=== PATIENT | female | born 1965 | race Caucasian/White ===

== ENCOUNTER → 2019-07-08 | Outpatient (CLI) | payer OTHER ==
--- NOTE | 2019-07-08 11:37 | RAD ---
KNEE RIGHT 2V 07/08/2019 12:00 AM INDICATION: Right knee pain with history of replacement 3 years ago COMPARISON: None available. TECHNIQUE: 2 views the right knee are provided. FINDINGS/ IMPRESSION: 1. Right total knee arthroplasty is identified. There is no significant lucency surrounding the hardware. There is 1.7 mm lucency along the posterior femoral component without resorption of the cortex. No evidence for hardware failure. 2. Moderate knee joint effusion. No acute fracture. Electronically signed by: Brandi Casiano MD (07/08/2019 11:34 AM) [id number]
--- NOTE | 2019-07-08 11:39 | RAD ---
LUMBAR SPINE 2-3V 07/08/2019 12:00 AM Indication: Low back pain with history of L2 compression fracture COMPARISON: None available TECHNIQUE: 2 views of the lumbar spine are provided. Findings: Alignment of the lumbar spine is normal. Vertebral body heights are maintained. No significant height loss at L2. No acute fracture is identified. Mild disc height loss at T9-T10 with endplate sclerosis. Is mild disc height loss at T11-T12 with minimal endplate sclerosis. Mild to moderate facet arthropathy. No significant osseous neuroforaminal stenosis or spinal canal stenosis. Nonobstructive bowel gas pattern. Visualized portions of the sacrum appear intact. Impression: No acute fracture or malalignment of the lumbar spine. Electronically signed by: Brandi Casiano MD (07/08/2019 11:36 AM) [id number]
== END | disposition home or self-care (01) ==
LOC: DXRAD 10:20
PROVIDERS: ATTEND Registered Nurse
DX: M25.461 Effusion, right knee (principal); M12.88 Other specific arthropathies, not elsewhere classified, other specified site; Z96.651 Presence of right artificial knee joint
CPT/HCPCS: 72100; 73560

== ENCOUNTER → 2021-12-06 | Outpatient (CLI) | payer OTHER ==
--- NOTE | 2021-12-06 13:51 | RAD ---
XR LUMBAR SPINE 2-3V History: Reason: BACK PAIN, DISABILITY DETERMINATION / Spl. Instructions: / History: Technique: 3 views lumbar spine. Comparison: None. Findings: Normal vertebral body height and alignment. No acute fracture. Mild degenerative disc changes most pr ominent L3-L4. Atheromatous vascular calcifications within the aorta. Impression: 1. Mild lumbar spondylosis. Electronically signed by: Gordy Stack DO (12/06/2021 1:49 PM) [id number]
--- NOTE | 2021-12-06 13:53 | RAD ---
XR KNEE_RT 1-2 VIEWS History: Reason: DISABILITY DETERMINATION / Spl. Instructions: / History: Technique: 2 views right knee Comparison: July 08, 2019 Findings: Right total knee arthroplasty. No dislocation. No acute fracture. Small knee joint effusion. Impression: 1. Right total knee arthroplasty, unchanged. Electronically signed by: Gordy Stack DO (12/06/2021 1:50 PM) [id number]
== END ==
LOC: RAD 09:44
PROVIDERS: ATTEND Family Medicine
DX: Z02.71 Encounter for disability determination (principal); M47.816 Spondylosis without myelopathy or radiculopathy, lumbar region; M51.36 Other intervertebral disc degeneration, lumbar region; M25.461 Effusion, right knee; I70.0 Atherosclerosis of aorta; Z96.651 Presence of right artificial knee joint
CPT/HCPCS: 72100; 73560